=== PATIENT | male | born 1955 | race Hispanic/Latino ===

== ENCOUNTER 2021-01-24 07:46 | Emergency (ER) | payer MEDICAID ==
--- NOTE | 2021-01-24 07:56 | Event Note ---
ED Screening Note Date of service: 01/24/21 Time: 07:53 ED Screening Note: This is a 65-year-old male with no prior medical conditions who presents to the ED with bilateral leg swelling no redness left greater than right x3 days No fever, wheelchair This initial assessment/diagnostic orders/clinical plan/treatment(s) is/are subject to change based on patients health status, clinical progression and re- assessment by fellow clinical providers in the ED. Further treatment and workup at subsequent clinical providers discretion. Patient/guardian urged not to elope from the ED as their condition may be serious if not clinically assessed and managed. Initial orders include: Basic labs ordered
[2021-01-24 08:52] LABS: Basophils % (Auto) 0.4 % (0.0-1.8); Eosinophils # (Auto) 0.2 K/mm3 (0.0-0.4); Eosinophils % (Auto) 2.7 % (0.0-4.3); Hemoglobin 14.4 gm/dl (11.8-15.2); Lymphocytes # (Auto) 1.5 K/mm3 (1.2-5.4); Lymphocytes % (Auto) 23.7 % (13.4-35.0); Mean Corpuscular HGB Conc 35 % (32-34); Mean Corpuscular Volume 99 fl (84-94); Monocytes # (Auto) 0.5 K/mm3 (0.0-0.8); Platelet Count 214 K/mm3 (140-440); Red Blood Count 4.14 M/mm3 (3.65-5.03); Red Cell Distribution Width 12.4 % (13.2-15.2)
[2021-01-24] MEDS ORDERED: HYDROcodone/ACETAMINOPHEN 5-325 MG TAB PO ONE (08:53)
--- NOTE | 2021-01-24 08:58 | Emergency Department Report ---
ED Extremity Problem HPI - General Chief complaint: Extremity Injury, Lower Stated complaint: LEFT LEG PAIN X 1 DAY Time Seen by Provider: 01/24/21 08:45 Source: patient, EMS Mode of arrival: Wheelchair Limitations: Physical Limitation - History of Present Illness Initial comments: 65-year-old male with history of venous insufficiency, presents to ED with lower leg pain and swelling. Patient states he has had baseline swelling and pain in bilateral lower legs for over a year now. He states he was supposed to have a surgical procedure done prior to the pandemic, however, his physician retired and he was unable to have this procedure performed. Patient states his pain is usually controlled with gabapentin and ibuprofen, however patient reports he has run out of his medication. Additionally, patient reports he did lots of walking on yesterday which she believes has worsened his pain and the swelling in his left leg. Patient denies any fever, chest pain, shortness of breath. MD Complaint: extremity pain, extremity swelling -: year(s) (1) Location: bilateral lower extremity History of Same: Yes Severity scale (0 -10): 10 Quality: aching Consistency: constant Improves with: medication Worsens with: walking, palpation Associated Symptoms: denies: chest pain, shortness of breath, fever - Related Data Previous Rx's Medication Instructions Recorded Last Taken Type Gabapentin 400 mg PO QDAY #30 capsule 01/24/21 Unknown Rx Naproxen [Naprosyn] 500 mg PO BID #20 tablet 01/24/21 Unknown Rx Sulfamethoxazole/Trimethoprim 1 each PO BID 7 Days #14 tablet 01/24/21 Unknown Rx [Bactrim DS TAB] Allergies Allergy/AdvReac Type Severity Reaction Status Date / Time codeine Allergy Hives Verified 01/24/21 08:41 ED Review of Systems ROS: Stated complaint: LEFT LEG PAIN X 1 DAY Other details as noted in HPI Comment: All other systems reviewed and negative Constitutional: denies: chills, fever Musculoskeletal: as per HPI ED Past Medical Hx - Past Medical History Additional medical history: hip / knee problems - Surgical History Past Surgical History?: No - Social History Smoking Status: Current Every Day Smoker Substance Use Type: None - Medications Home Medications: Home Medications Medication Instructions Recorded Confirmed Last Taken Type Gabapentin 400 mg PO QDAY #30 capsule 01/24/21 Unknown Rx Naproxen [Naprosyn] 500 mg PO BID #20 tablet 01/24/21 Unknown Rx Sulfamethoxazole/Trimethoprim 1 each PO BID 7 Days #14 tablet 01/24/21 Unknown Rx [Bactrim DS TAB] ED Physical Exam - General Limitations: Physical Limitation General appearance: alert, in no apparent distress - Head Head exam: Present: atraumatic, normocephalic - Eye Eye exam: Present: normal appearance, EOMI - ENT ENT exam: Present: mucous membranes moist - Neck Neck exam: Present: normal inspection - Respiratory Respiratory exam: Present: normal lung sounds bilaterally. Absent: respiratory distress - Cardiovascular Cardiovascular Exam: Present: regular rate, normal rhythm - GI/Abdominal GI/Abdominal exam: Absent: distended - Extremities Exam Extremities exam: Present: other (1+ edema to bilateral lower legs with some erythema present to the anterior aspect of both legs; tenderness present) - Neurological Exam Neurological exam: Present: alert, oriented X3 - Psychiatric Psychiatric exam: Present: normal affect, normal mood - Skin Skin exam: Present: warm, dry, intact, normal color ED Course Vital Signs 01/24/21 01/24/21 01/24/21 07:49 08:42 09:37 Temperature 97.7 F Pulse Rate 72 73 68 Respiratory 20 18 18 Rate Blood Pressure 136/80 Blood Pressure 132/88 144/87 [Right] O2 Sat by Pulse 96 97 98 Oximetry ED Medical Decision Making - Lab Data Result diagrams: 01/24/21 08:20 01/24/21 08:20 - Radiology Data Radiology results: report reviewed, image reviewed - Medical Decision Making 65-year-old male with chronic bilateral lower extremity swelling presents to ED with increased pain and swelling in the left leg since yesterday. Patient has no chest pain or shortness of breath. On exam, circumference of both legs maco ear to be equal in size. There is some erythema present as well. Ultrasound is negative for DVT. Labs are unremarkable. Patient will be discharged at this time with antibiotics to treat cellulitis. Patient is requesting a refill on his gabapentin. Outpatient follow-up advised, return precautions given. - Differential Diagnosis DVT, cellulitis, chronic venous insufficiency Critical care attestation.: If time is entered above; I have spent that time in minutes in the direct care of this critically ill patient, excluding procedure time. ED Disposition Clinical Impression: Venous insufficiency of both lower extremities, Cellulitis of lower extremity Disposition: - TO HOME OR SELFCARE Is pt being admited?: No Condition: Stable Instructions: Cellulitis, Adult, Chronic Venous Insufficiency Prescriptions: Sulfamethoxazole/Trimethoprim [Bactrim DS TAB] 1 each PO BID 7 Days #14 tablet Gabapentin 400 mg PO QDAY #30 capsule Naproxen [Naprosyn] 500 mg PO BID #20 tablet Referrals: PRIMARY CARE, [Primary Care Provider] - 3-5 Days Time of Disposition: 11:30
[2021-01-24 09:11] LABS: BUN/Creatinine Ratio 31; Blood Urea Nitrogen 25 mg/dL (9-20); Calcium 9.5 mg/dL (8.4-10.2); Hemolysis Index 5
[2021-01-24 09:37] VITALS: BP 144/87
--- NOTE | 2021-01-24 11:28 | Vascular Lab Report ---
VL venous duplex LE BILAT INDICATION / CLINICAL INFORMATION: redness, pain, swelling. COMPARISON: None available. FINDINGS: No evidence of deep vein thrombosis in either leg. Signer Name: Uvaldo Gross MD Signed: 01/24/2021 11:23 AM Workstation Name: [id number]
== END 2021-01-24 11:52 | disposition home or self-care (01) ==
LOC: ED 07:46
DX: I87.2 Venous insufficiency (chronic) (peripheral) (principal); L03.116 Cellulitis of left lower limb; L03.115 Cellulitis of right lower limb; F17.200 Nicotine dependence, unspecified, uncomplicated; Z79.899 Other long term (current) drug therapy; Z88.8 Allergy status to other drugs, medicaments and biological substances
CPT/HCPCS: 36415; 80048; 85025; 93970

== ENCOUNTER 2021-02-02 15:21 | Emergency (ER) | payer MEDICAID ==
--- NOTE | 2021-02-02 16:19 | Event Note ---
ED Screening Note Date of service: 02/02/21 Time: 16:17 ED Screening Note: Patient presents with complaints of lower extremity pain and swelling as well as depression and feels like he needs inpatient treatment. Patient states that he was here a couple weeks ago for lower extremity pain swelling and redness. Patient was diagnosed with cellulitis. He was discharged on Bactrim. Patient states that he felt like he was not getting better after finished the Bactrim and so went to [facility]. He states that they also diagnosed him with cellulitis but started him on another antibiotic the name of which she does not recall at this time. Patient states that he went back again to [facility] he was admitted overnight and was given IV Lasix. He states that it did help his swelling after the Lasix. He was discharged home on Lasix but he has not gotten it filled. He states that he is still having lots of pain in his leg. He states that the redness is the same as it has been since he started the new antibiotics. He states he was discharged on naproxen for pain but not been helping. Patient also states that he has been off his Seroquel for about a month. He try to go get a refill but his daughter was not available. He states that he has been very depressed, and has been crying almost every day and he has been having visual and auditory hallucinations. He denies any SI or HI currently. He is requesting patient psych treatment. This initial assessment/diagnostic orders/clinical plan/treatment(s) is/are subject to change based on patients health status, clinical progression and re- assessment by fellow clinical providers in the ED. Further treatment and workup at subsequent clinical providers discretion. Patient/guardian urged not to elope from the ED as their condition may be serious if not clinically assessed and managed. Initial orders include: CBC, CMP, venous Doppler, and a psych order
[2021-02-02 17:28] LABS: Basophils % (Auto) 0.6 % (0.0-1.8); Eosinophils # (Auto) 0.2 K/mm3 (0.0-0.4); Eosinophils % (Auto) 4.5 % (0.0-4.3); Hematocrit 41.9 % (35.5-45.6); Hemoglobin 14.6 gm/dl (11.8-15.2); Lymphocytes # (Auto) 1.4 K/mm3 (1.2-5.4); Mean Corpuscular HGB Conc 35 % (32-34); Mean Corpuscular Volume 101 fl (84-94); Monocytes # (Auto) 0.4 K/mm3 (0.0-0.8); Monocytes % (Auto) 8.1 % (0.0-7.3); Platelet Count 213 K/mm3 (140-440); Red Blood Count 4.16 M/mm3 (3.65-5.03); Red Cell Distribution Width 12.6 % (13.2-15.2)
[2021-02-02 17:42] LABS: Alanine Aminotransferase 39 units/L (7-56); BUN/Creatinine Ratio 14; Blood Urea Nitrogen 17 mg/dL (9-20); Calcium 9.2 mg/dL (8.4-10.2); Hemolysis Index 7
--- NOTE | 2021-02-02 19:27 | Vascular Lab Report ---
DUPLEX DOPPLER LOWER EXTREMITY VEINS, BILATERAL INDICATION / CLINICAL INFORMATION: Lower extremity swelling and pain. TECHNIQUE: Duplex doppler imaging was performed through the veins of both lower extremities using venous silvia farhad and other maneuvers. COMPARISON: None available. FINDINGS: RIGHT COMMON FEMORAL VEIN: Negative. RIGHT FEMORAL VEIN: Negative. RIGHT POPLITEAL VEIN: Negative. RIGHT CALF VEINS: Negative. LEFT COMMON FEMORAL VEIN: Negative. LEFT FEMORAL VEIN: Negative. LEFT POPLITEAL VEIN: Negative. LEFT CALF VEINS: Negative. ADDITIONAL FINDINGS: A prominent right inguinal node measuring 1 cm in short axis dimension does not have a distinct fatty hilum. IMPRESSION: 1. No sonographic evidence for DVT in either lower extremity. 2. Nonspecific prominent right inguinal node. Close clinical follow-up to ensure resolution is recomm ended. Signer Name: Anil Poon MD Signed: 02/02/2021 7:22 PM Workstation Name: [id number]
--- NOTE | 2021-02-03 01:26 | Emergency Department Report ---
ED General Adult HPI - General Chief complaint: Extremity Problem,Nontraumatic Stated complaint: BILATERAL LEG SWELLING PUI?: No Time Seen by Provider: 02/02/21 16:07 Source: patient Mode of arrival: Ambulatory Limitations: No Limitations - History of Present Illness Initial comments: Chief complaint: "I have cellulitis in both legs." HPI: This is a 65-year-old male with history of chronic bilateral leg swelling, peripheral neuropathy, arthritis, who presents with leg swelling and redness. He was evaluated at [facility] on yesterday. Prescribed naproxen cephalexin and Bactrim. Patient was also treated with IV furosemide last night. He denies fever. Denies trauma. He has had swelling for at least 2 weeks. He informed provider triage he had depression. Patient currently denies suicidal homicidal ideation. He appears well and jovial at this time. -: Gradual, week(s) (2 weeks) Location: left, right, upper extremity, lower extremity Severity scale (0 -10): 5 Quality: aching Consistency: constant Improves with: none Worsens with: none, other (Palpation) Associated Symptoms: other (Depression) - Related Data Previous Rx's Medication Instructions Recorded Last Taken Type Gabapentin 400 mg PO QDAY #30 capsule 01/24/21 Unknown Rx Naproxen [Naprosyn] 500 mg PO BID #20 tablet 01/24/21 Unknown Rx Sulfamethoxazole/Trimethoprim 1 each PO BID 7 Days #14 tablet 01/24/21 Unknown Rx [Bactrim DS TAB] Allergies Allergy/AdvReac Type Severity Reaction Status Date / Time codeine Allergy Hives Verified 01/24/21 08:41 ED Review of Systems ROS: Stated complaint: BILATERAL LEG SWELLING Other details as noted in HPI Comment: All other systems reviewed and negative Constitutional: denies: fever, malaise Respiratory: denies: shortness of breath Cardiovascular: denies: chest pain Gastrointestinal: denies: abdominal pain, nausea, vomiting Skin: rash, lesions ED Past Medical Hx - Past Medical History Previous Medical History?: Yes Hx Psychiatric Treatment: Yes (Depression) Additional medical history: hip / knee problems - Surgical History Past Surgical History?: No - Social History Smoking Status: Never Smoker Substance Use Type: None - Medications Home Medications: Home Medications Medication Instructions Recorded Confirmed Last Taken Type Gabapentin 400 mg PO QDAY #30 capsule 02/26/21 Unknown Rx Naproxen [Naprosyn] 500 mg PO BID #20 tablet 01/24/21 Unknown Rx Sulfamethoxazole/Trimethoprim 1 each PO BID 7 Days #14 tablet 01/24/21 Unknown Rx [Bactrim DS TAB] ED Physical Exam - General Limitations: No Limitations General appearance: alert, in no apparent distress, other (Jovial talkative) - Head Head exam: Present: atraumatic, normocephalic - Eye Eye exam: Present: normal appearance - ENT ENT exam: Present: mucous membranes moist - Neck Neck exam: Present: normal inspection - Respiratory Respiratory exam: Present: normal lung sounds bilaterally. Absent: respiratory distress, wheezes, rales, rhonchi, stridor - Cardiovascular Cardiovascular Exam: Present: regular rate, normal rhythm, normal heart sounds. Absent: systolic murmur, diastolic murmur, rubs, gallop - GI/Abdominal GI/Abdominal exam: Present: soft, normal bowel sounds. Absent: distended, tende rness, guarding, rebound - Rectal Rectal exam: Present: deferred - Extremities Exam Extremities exam: Present: pedal edema - Back Exam Back exam: Present: normal inspection - Neurological Exam Neurological exam: Present: alert, oriented X3 - Psychiatric Psychiatric exam: Present: normal affect, normal mood. Absent: depressed, homicidal ideation, suicidal ideation - Skin Skin exam: Present: warm, dry, intact, other (Faint red papular rash lower extremities nonpitting edema from knees to feet). Absent: rash ED Course Vital Signs 02/02/21 15:25 Temperature 97.2 F L Pulse Rate 97 H Respiratory 16 Rate Blood Pressure 162/77 [Left] O2 Sat by Pulse 97 Oximetry ED Medical Decision Making - Lab Data Result diagrams: 02/02/21 17:00 02/02/21 17:00 - Medical Decision Making . Venous insufficiency: Patient has followed with vascular surgery in the past. Vein therapy was recommended prior to COVID-19 pandemic. I have referred patient to vascular surgeon. 2. Venous stasis dermatitis: Patient was given appropriate treatment with cephalexin and Bactrim no evident cellulitis at this time 3. Depression: Patient not suicidal homicidal ideation. He does not have a plan to harm himself. No indication for urgent mental health assessment 4. Medication refill request: Patient requested refill of gabapentin. At this hospital patient was prescribed gabapentin 2 weeks ago. I recommended outpatient follow-up with primary care physician. Critical care attestation.: If time is entered above; I have spent that time in minutes in the direct care of this critically ill patient, excluding procedure time. ED Disposition Clinical Impression: Venous insufficiency of both lower extremities, Venous stasis dermatitis, History of depression Disposition: TO HOME OR SELFCARE Is pt being admited?: No Does the pt Need Aspirin: No Condition: Stable Instructions: Chronic Venous Insufficiency Referrals: GIGI CAMACHO MD [Staff Physician] - 3-5 Days PERFECTO FERGUSON MD [Staff Physician] - 3-5 Days
[2021-02-03 01:47] VITALS: BP 130/66
== END 2021-02-03 01:47 | disposition home or self-care (01) ==
LOC: ED 15:21
DX: I87.2 Venous insufficiency (chronic) (peripheral) (principal); F32.9 Major depressive disorder, single episode, unspecified; Z79.899 Other long term (current) drug therapy; Z88.8 Allergy status to other drugs, medicaments and biological substances
CPT/HCPCS: 36415; 80053; 80320; 83735; 83880; 85025; 93970; G0480